=== PATIENT | male | born 1960 | race Caucasian/White ===

== ENCOUNTER 2017-02-13 02:05 | Emergency (ER) | payer OTHER ==
[~2017-02-13] VITALS: Ht 167.6 cm; Wt 81.2 kg
--- NOTE | 2017-02-13 02:32 | PHYS DOC ---
General Chief Complaint: EYE PROBLEMS Stated Complaint: RT EYE PROBLEM THINKS RETINA DETACHED Time Seen by MD: 02:12 Source: patient Exam Limitations: no limitations Problems: History of Present Illness Initial Comments Patient is a 56-year-old male who comes to the ED complaining that he thinks his right retina and is becoming detached. Patient has history of bilateral retinal detachment 2 years ago, had both eyes repaired with laser intervention left eye required further surgical intervention 2 days later. He's had no further issues until about an hour ago driving to work he felt sudden onset of feeling as if his right eye was swollen , flashes of light, and a curtain coming down. He says that without his glasses it appears as if he is looking through a fish bowl, he reports that the symptoms are exactly like his prior symptoms. He says that with his last episode he had no visual field deficits or visual acuity changes, he denies any other neuro deficits headache or trauma. ED vital signs are stable Timing/Duration: abrupt Severity: severe Location: eye (R) Prearrival Treatment: no prearrival treatment Modifying Factors: improves with other Associated Symptoms: other Allergies: Coded Allergies: No Known Drug Allergies (Unverified , 02/13/17) Past Medical History Medical History: other (bilateral retinal detachments) Surgical History: other (knee scope, bilateral eye surgery) Social History Smoker: non-smoker Alcohol: none Drugs: none Constitutional: denies chills, denies diaphoresis, denies fever, denies malaise Eyes: see HPI Ears: denies dizziness, denies pain, denies tinnitus Nose: denies clots, denies congestion, denies epistaxis Throat: denies pain, denies swelling, denies discharge, denies neck stiffness Respiratory: denies cough, denies shortness of breath Cardiovascular: denies chest pain, denies palpitations Gastrointestinal: denies diarrhea, denies nausea, denies vomiting Musculoskeletal: denies back pain, denies joint swelling, denies neck pain Neurological: see HPI, denies headache, denies numbness, denies paresthesia, denies weakness Physical Exam General Appearance: WD/WN, no apparent distress Eyes: bilateral eye normal inspection, bilateral eye PERRL, bilateral eye EOMI Nose: normal inspection Neck: non-tender, full range of motion Cardiovascular/Respiratory: normal peripheral pulses, no respiratory distress Neurologic/Psychiatric: 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 Dilation of the eyes, slit-lamp evaluation in this facility would delay that process and I have requested staff to call on-call admitting at [facility]. 0255: I discussed the patient with on-call smooth plater at [facility] Dr. Cavazos, he states that he does not perform retinal procedures and requests that the patient be transferred to [facility]. 0305: I discussed the patient with the triage coordinator at , they will contact [facility] and call us back shortly. 0327: Dr. Crain on-call smooth plater at has accepted the patient private auto for evaluation. Emergency department at . It is requested that the patient go straight to the emergency department and take his paperwork to the registration desk notify the yield clerk that Dr. Crain will evaluate the patient in the emergency department. I discussed this with the patient and his spouse, his spouse will drive him directly to that facility. Departure Time of Disposition: 02:32 Disposition: 02 XFER [facility] Diagnosis: right eye symptoms rule out retinal detachment Condition: STABLE Patient Instructions: Retinal Detachment Additional Instructions: As discussed please drive directly to the emergency department at [facility]. Take your paperwork to the registration desk and notify them that Dr. Crain is expecting you and will evaluate you in the emergency department. MICHI GRAHAM DO Feb 13, 2017 02:32
[2017-02-13 03:43] VITALS: BP 135/85
== END 2017-02-13 03:58 | disposition short-term general hospital (02) ==
LOC: ER 02:05
DX: H57.8 Other specified disorders of eye and adnexa (principal)
CPT/HCPCS: 99285-25

== ENCOUNTER → 2020-03-20 | Outpatient (CLI) | payer OTHER ==
--- NOTE | 2020-03-20 10:20 | RAD ---
INDICATION: Reason: FATIGUE, SHORTNESS OF BREATH, COUGH / Spl. Instructions: / History: COMPARISON: None. FINDINGS: 2 view of chest obtained. Degenerative changes the spine. Cardiac silhouette is unremarkable. No focal airspace consolidation. IMPRESSION: * No focal airspace consolidation or edema. Electronically signed by: Abelardo Devine MD (03/20/2020 10:18 AM) [id number]
== END ==
LOC: DXRAD 10:00
PROVIDERS: ATTEND Family Medicine
DX: R05 Cough (principal)
CPT/HCPCS: 71046

== ENCOUNTER 2021-04-21 18:31 | Emergency (ER) | payer OTHER ==
[~2021-04-21] VITALS: Ht 167.6 cm; Wt 83.3 kg
[2021-04-21 18:44] VITALS: BP 155/93
[2021-04-21] MEDS ORDERED: LIDOCAINE (700MG/PATCH) PATCH. TD SCH (19:00)
[2021-04-21] MEDS ORDERED: HYDROcodone/APAP 10/325 1 TAB TABLET PO ONE (19:15)
[2021-04-21] MEDS ORDERED: CYCL5TAB PO (20:12)
[2021-04-21] MEDS ORDERED: LIDO700A21 TP (20:12)
--- NOTE | 2021-04-21 20:13 | PHYS DOC ---
Past History Past Medical History: Other Additional Past Medical Histor: psoriatic arthritis, spondylitis Past Surgical History: Knee Replacement, Other Additional Past Surgical Histo: L labrum repair Alcohol Use: None Drug Use: None General Adult EDM: Chief Complaint: BACK PAIN OR INJURY HPI: HPI: 60 yo M past medical history of psoriatic arthritis, presents the ED with complaints of left buttock pain, described as sharp, that radiates down his posterior thigh to his left knee stating "it's been getting worse for the past few months." States he saw Dr. Dinesh Padilla today and was told his back MRI "didn't show anything." States use prescribed anti-inflammatories. Is also [facility] who reviewed his MRI and was told he had spondylolisthesis with no nerve involvement. 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 Has not seen pain management for this. PCP-Jason. Reports slipping on ice and landing on on his back 6 weeks ago. No associated anesthesia, urinary bowel retention or incontinence or leg weakness/sensory deficits. Came to the ed because "I cannot handle the pain anymore." Denies any recent trauma. Has not been diagnosed with sciatica. Denies any history of trauma, history of IV drug use, history of cancer, history of malignancy, history of immunocompromise state, neurologic complaints including saddle anesthesia, weakness or paresthesias, urinary retention, bowel or bladder incontinence, night pain, fever/chills/night sweats, unexplained weight loss, anticoagulants or coagulopathy, prolonged steroid use, presence of contusions or abrasions. Review of Systems: Review of Systems: Constitutional: Denies fever or chills Eyes: Denies change in visual acuity HENT: Denies nasal congestion or sore throat Respiratory: Denies cough or shortness of breath Cardiovascular: Denies chest pain or edema GI: Denies nausea or vomiting : Denies saddle anesthesia or incontinence Musculoskeletal: Denies midline back pain or joint pain Integument: Denies rash or diaphoresis Neurologic: Denies headache, focal weakness or sensory changes Endocrine: Denies polyuria or polydipsia Lymphatic: Denies swollen glands Psychiatric: Denies depression or anxiety Current Medications: Current Meds: Current Medications Medications (Trade) Dose Ordered Sig/Aisl[place] Start Time Stop Time Status Last Admin Dose Admin Acetaminophen/ Hydrocodone Bitart (Lortab 10/325) 1 tab 1X ONCE 04/21/21 19:15 04/21/21 19:18 DC 04/21/21 19:26 1 TAB Lidocaine (Lidoderm) 1 patch DAILY 04/21/21 19:00 04/21/21 19:00 1 PATCH Miscellaneous (Lidoderm Patch Removal) 1 ea QHS 04/21/21 21:00 Allergies: Allergies: Allergies Coded Allergies Type Severity Reaction Last Updated Verified No Known Drug Allergies 02/13/17 No Physical Exam: PE: Constitutional: Well developed, well nourished, no acute distress, non-toxic appearance. HENT: Normocephalic, atraumatic, Eyes: EOMI, conjunctiva normal, no discharge. Neck: Normal range of motion, supple, Cardiovascular: S1/2 present, regular rhythm Lungs & Thorax: Speaking in full sentences, bilateral equal chest rise, no tachypnea or increased work of breathing Skin: Warm, dry, no erythema, no rash. [] Back: No midline tenderness, no CVA tenderness, left buttock pain-grimaces when going from sitting to standing, no si joint pain Extremities: No tenderness, no cyanosis, no lower extremity edema Neurologic: Alert and oriented X 3, normal motor function, normal sensory function, no focal deficits noted. [] Psychologic: Affect normal, judgement normal, mood normal. [] Current Patient Data: Vital Signs: Vital Signs Date Time Temp Pulse Resp B/P (MAP) Pulse Ox O2 Delivery O2 Flow Rate FiO2 04/21/21 19:26 24 04/21/21 18:44 98.3 80 155/93 (113) 95 EKG: EKG: [] Radiology/Procedures: Radiology/Procedures: [] Heart Score: C/O Chest Pain: No Risk Factors: Risk Factors: DM, Current or recent (<one month) smoker, HTN, HLP, family history of CAD, obesity. Risk Scores: Score 0 - 3: 2.5% MACE over next 6 weeks - Discharge Home Score 4 - 6: 20.3% MACE over next 6 weeks - Admit for Clinical Observation Score 7 - 10: 72.7% MACE over next 6 weeks - Early Invasive Strategies Course & Med Decision Making: Course & Med Decision Making Pertinent Labs and Imaging studies reviewed. (See chart for details) Concern for chronic, intermittent left sided buttock pain, highly suspect sciatica/neuropathic process in the absence of any neurologic deficits. EMR reviewed-no prior imaging. MRI has been performed in the past month w/orthopedic surgery who pt saw today in the clinic and was prescribed nsaids. No recent blunt trauma or falls-no indication for imaging at this time. Will discharge home with strict ED return precautions were given for repeat injury, saddle anesthesia, incontinence, or fever. Encouraged urgent outpatient follow-up with PMD for routine care and refer to pain management for evaluation. Life- threatening processes were considered but are low suspicion at this time, given history, physical exam and ED workup. Pt was educated on all prescription medications and adverse effects. All patient's questions were answered and pt was stable at time of discharge. Life/limb-threatening differential includes but is not limited to, aortic dissection/aneurysm, cauda equina syndrome, transverse myelitis, spinal cord/epidural compression syndromes, discitis, spinal stenosis, epidural abscess or hematoma, osteomyelitis, disc herniation, surgical abdomen, stable or unstable fracture, renal/ureteral colic, sepsis, meningitis, musculoskeletal injury, traumatic injury, intraabdominal/retroperitoneal or pelvic bleeding. I have spoken with the patient and/or caregivers. I explained the patient's condition, diagnoses and treatment plan based on the information available to me at this time. I have answered the patient and/or caregiver's questions and addressed any concerns. The patient and/or caregivers have a good understanding of patient's diagnosis, condition and treatment plan as can be expected at this point. Vital signs have been stable. Patient's condition is stable and appropriate for discharge from the emergency department. Patient will pursue further outpatient evaluation with primary care physician or other designated or consulting physician as outlined in the discharge instructions. The patient and/or caregivers are agreeable to this plan of care and follow-up instructions have been explained in detail. The patient and/or caregivers have received these instructions in written form and have expressed an understanding of the discharge instructions. The patient and/or caregivers are aware that any significant change of condition or worsening of symptoms should prompt immediate return to this or the closest emergency department or call to 911. [place] Disclaimer: [place] Disclaimer: This electronic medical record was generated, in whole or in part, using a voice recognition dictation system. Departure Departure: Impression: Primary Impression: Chronic back pain Disposition: HOME / SELF CARE / HOMELESS Condition: STABLE Referrals: DEDRICK KING MD (PCP) in 1-2 days for re-evaluation return to ed if you should develop and loss of sensation, incontinence or bowel/bladder retention Patient Instructions: Chronic Back Pain, Sciatica Additional Instructions: FOLLOW UP WITH PAIN MANAGEMENT: FOR DEFINITIVE MANAGEMENT [facility] [address] [place] [address] EMERGENCY DEPARTMENT GENERAL DISCHARGE INSTRUCTIONS Thank you for coming to [facility] (ED) today and trusting us with you care. We trust that you had a positivie experience in our Emergency Department. If you wish to speak to the department management, you may call the director at [phone]. YOUR FOLLOW UP INSTRUCTIONS ARE FOLLOWS: 1. Do you have a private Doctor? If you do not have a private doctor, please ask for a resource list of physicians or clinics that may be able to assist you with follow up care. 2. The Emergency Physician has interpreted your x-rays. The X-Ray specialist will also review them. If there is a change in the findings, you will be notified in 48 hours when at all possible. 3. A lab test or culture has been done, your results will be reviewed and you will be notified if you need a change in treatment. ADDITIONAL INSTRUCTIONS AND INFORMATION: 1. Your care today has been supervised by a physician who is specially trained in emergency care. Many problems require more than one evaluation for a complete diagnosis and treatment. We recommend that you schedule your follow up appointment as recommended to ensure complete treatment of you illness or injury. If you are unable to obtain follow up care and continue to have a problem, or if your condition worsens, we recommend that you return to the ED. 2. We are not able to safely determine your condition over the phone nor are we able to give sound medical advice over the phone. For these safety reasons, if you call for medical advice we will ask you to come to the ED for further evaluation. 3. If you have any questions regarding these discharge instructions please call the ED at [phone]. SAFETY INFORMATION: In the interest of safety, wellness, and injury prevention; we encourage you to wear your sealbelt, if you smoke; quite smoking, and we encourage family to use a protective helmet for bicycling and other sporting events that present an increased risk for head injury. IF YOUR SYMPTOMS WORSEN OR NEW SYMPTOMS DEVELOP, OR YOU HAVE CONCERNS ABOUT YOUR CONDITION; OR IF YOUR CONDITION WORSENS WHILE YOU ARE WAITING FOR YOUR FOLLOW UP APPOINTMENT; EITHER CONTACT YOUR PRIMARY CARE DOCTOR, THE PHYSICIAN WHOSE NAME AND NUMBER YOU WERE GIVEN, OR RETURN TO THE ED IMMEDIATELY. Scripts Cyclobenzaprine Hcl (CYCLOBENZAPRINE HCL) 5 Mg Tablet 1 TAB PO TID for pain, #20 TAB Prov: ELIECER JESSICA DO 04/21/21 Lidocaine (Lidocaine PATCH ) 1 Each Adh..patch 1 EACH TP DAILY for FOR LOCAL PAIN for 5 Days, #5 PATCH REMOVE AFTER 12 HOURS Prov: ELIECER JESSICA DO 04/21/21 ELIECER JESSICA DO Apr 21, 2021 20:12
[2021-04-21] MEDS ORDERED: PATCH REMOVAL. MC SCH (21:00)
== END 2021-04-21 20:20 | disposition home or self-care (01) ==
LOC: ER 18:31
DX: G89.29 Other chronic pain (principal); M54.59 Other low back pain; L40.50 Arthropathic psoriasis, unspecified
CPT/HCPCS: 99283